=== PATIENT | male | born 1990 | race Caucasian/White ===

== ENCOUNTER 2017-06-01 13:18 | Emergency (ER) | payer OTHER ==
[~2017-06-01] VITALS: Ht 180.3 cm; Wt 124.0 kg
[2017-06-01] MEDS ORDERED: FENT1PAT4 TD (13:29)
[2017-06-01] MEDS ORDERED: HYDR-519 PO (13:29)
[2017-06-01] MEDS ORDERED: BACL20TA PO (13:29)
[2017-06-01] MEDS ORDERED: GABA-290 PO (13:29)
[2017-06-01] MEDS ORDERED: TIZA4CAP PO (13:29)
[2017-06-01] MEDS ORDERED: TETANUS, DIPHTHERIA, PERTUSSIS VAC/PF 0.5ML (>7YR OLD) IM ONE (13:45)
[2017-06-01] MEDS ORDERED: MORPHINE SULFATE 10 MG/ML CPJ IV ONE (14:00)
[2017-06-01] MEDS ORDERED: ONDANSETRON HCL 4MG/2ML VIAL IV ONE (14:00)
[2017-06-01] MEDS ORDERED: FENTANYL CITRATE/PF 50MCG/ML 2ML VIAL IV ONE (14:00)
[2017-06-01] MEDS ORDERED: CEFAZOLIN 1000MG PREMIX 50 ML IV ONE (14:00)
[2017-06-01] MEDS ORDERED: SODIUM CHLORIDE 0.9% 1,000 ML IV ONE (14:00)
[2017-06-01 15:13] VITALS: BP 121/66
[2017-06-01 15:17] LABS: PARTIAL THROMBOPLASTIN TIME 25.1 sec (24.0-34.0); PROTHROMBIN TIME 10.8 sec
[2017-06-01 15:21] LABS: CARBON DIOXIDE 26 mEq/L (21-32); CHLORIDE 107 mEq/L (98-107)
[2017-06-01 15:22] LABS: BASOPHILS % 0.6 % (0.0-2.0); EOSINOPHILS % 1.9 % (0.0-5.0); HEMATOCRIT. 40.8 % (42.0-52.0); HEMOGLOBIN. 13.5 g/dL (14.0-18.0); LYMPHOCYTES % 20.3 % (20.0-50.0); MEAN CORPUSCULAR HEMOGLOBIN 31.1 pg (28.0-32.0); MEAN CORPUSCULAR VOLUME 93.8 fL (80.0-94.0); MONOCYTES % 4.7 % (2.0-8.0); NEUTROPHILS % 72.5 % (40.0-76.0); PLATELET 209 x1000/uL (130-400); RED BLOOD CELL COUNT 4.35 mill/uL (4.7-6.1); RED CELL DISTRIBUTION WIDTH 14.2 % (11.6-14.6)
== END 2017-06-01 15:22 | disposition short-term general hospital (02) ==
LOC: ER 13:59
DX: S87.82XA Crushing injury of left lower leg, initial encounter (principal); S82.492A Other fracture of shaft of left fibula, initial encounter for closed fracture; G82.20 Paraplegia, unspecified; W24.0XXA Contact with lifting devices, not elsewhere classified, initial encounter; Y93.89 Activity, other specified; Y92.69 Other specified industrial and construction area as the place of occurrence of the external cause; Z71.6 Tobacco abuse counseling
CPT/HCPCS: 36415; 72170; 73590; 80048; 85025; 85610; 85730; 90471; 90715; 96365; 96375; 99291; 99406; J0690; J2405; J3010; J7030; X7700; Z7610